=== PATIENT | female | born 1950 | race Caucasian/White ===

== ENCOUNTER 2017-03-11 20:52 | Emergency (ER) | payer BC, MEDICARE ==
[~2017-03-11] VITALS: Ht 152.4 cm; Wt 70.3 kg
[2017-03-12] MEDS ORDERED: GLUCOPHAGE1000 MG PO (01:21)
[2017-03-12] MEDS ORDERED: ASPIRIN81 MG PO (01:21)
[2017-03-12] MEDS ORDERED: LIPITOR80 MG PO (01:21)
[2017-03-12] MEDS ORDERED: PRILOSEC20 MG PO (01:22)
[2017-03-12] MEDS ORDERED: TOUJEO SOL300 UNIT/1 SUBCUT (01:22)
[2017-03-12] MEDS ORDERED: PROAIR HFA8.5 GM INH (01:23)
[2017-03-12] MEDS ORDERED: ADVAIR 250-501 EACH INH (01:24)
[2017-03-12] MEDS ORDERED: ULTRAM50 MG PO (01:24)
== END 2017-03-11 23:40 | disposition short-term general hospital (02) ==
LOC: ER 20:52
DX: N13.2 Hydronephrosis with renal and ureteral calculous obstruction (principal); I25.10 Atherosclerotic heart disease of native coronary artery without angina pectoris; J45.909 Unspecified asthma, uncomplicated; E11.319 Type 2 diabetes mellitus with unspecified diabetic retinopathy without macular edema; K21.9 Gastro-esophageal reflux disease without esophagitis; E78.5 Hyperlipidemia, unspecified; M19.90 Unspecified osteoarthritis, unspecified site; D64.9 Anemia, unspecified; L40.9 Psoriasis, unspecified; Z79.82 Long term (current) use of aspirin; Z79.899 Other long term (current) drug therapy; Z90.49 Acquired absence of other specified parts of digestive tract; Z95.1 Presence of aortocoronary bypass graft; Z90.710 Acquired absence of both cervix and uterus; Z98.890 Other specified postprocedural states
CPT/HCPCS: J2175; J2405